=== PATIENT | male | born 1935 | race Caucasian/White ===

== ENCOUNTER 2018-08-17 11:50 | Emergency (ER) | payer OTHER ==
[~2018-08-17] VITALS: Ht 177.8 cm; Wt 108.9 kg
[~2018-08-17 11:50] MED LIST: ASCO500T11 PO; FURO80TA3 PO; GEMF600T7 PO; LEVO150T10 PO; SERT-274 PO; [UNRECOGNIZED DRUG - CODE] PO
[2018-08-17 13:43] LABS: Hemoglobin 14.4 g/dL (13.5-17.5); Mean Corpuscular Hemoglobin 35.5 pg (28.0-32.0); Mean Corpuscular Hgb Conc. 32.8 g/dL (32.0-36.0); Mean Corpuscular Volume 108.3 fL (80.0-100.0); Platelet Count (auto) 95 10^3/uL (140-450); Red Blood Cells 4.06 10^6/uL (4.5-5.90); Red Cell Distribution Width 18.4 % (11.8-14.3)
[2018-08-17 13:50] LABS: Basophils % (manual) 0 (0.0-2.0); Blast Cells 0; Eosinophils % (manual) 0 (0-7); Metamyelocytes % 0; Myelocytes % 0; Promyelocytes % 0; Reactive Lymphocytes 0
[2018-08-17 13:56] LABS: INR 1.47 (0.9-1.15); Partial Thromboplastin Time 28.2 sec (23.78-33.04); Prothrombin Time 15.4 sec (9.27-12.13)
[2018-08-17 13:57] LABS: Calcium 8.7 mg/dL (8.5-10.1); Potassium 3.6 mmol/L (3.5-5.1)
[2018-08-17 14:00] LABS: BUN/Creatinine Ratio 52.3; Total Protein 6.2 g/dL (6.4-8.2)
[2018-08-17 14:30] LABS: Band Neutrophils % (manual) 1; Lymphocytes % (manual) 12 (10.0-50.0); Monocytes % (manual) 4 (0-12)
[2018-08-17] MEDS: LEVOFLOXACIN 500MG 100 ML IV ONE (15:25)
[2018-08-17 16:00] VITALS: BP 113/65
[2018-08-17] MEDS: HYDROcodone-ACET 10/325MG TAB PO ONE (18:02)
== END 2018-08-17 19:00 | disposition home or self-care (01) ==
LOC: EDBD 11:50 → ER 11:52
DX: L03.116 Cellulitis of left lower limb (principal); L03.115 Cellulitis of right lower limb; I11.0 Hypertensive heart disease with heart failure; I50.9 Heart failure, unspecified; N39.0 Urinary tract infection, site not specified; J18.9 Pneumonia, unspecified organism; M19.90 Unspecified osteoarthritis, unspecified site; E78.5 Hyperlipidemia, unspecified; E07.9 Disorder of thyroid, unspecified; Z88.6 Allergy status to analgesic agent; Z88.0 Allergy status to penicillin; Z79.899 Other long term (current) drug therapy
CPT/HCPCS: 36415; 71045; 80053; 82270; 83605; 85007; 85027; 85610; 85730; 87040; 87493; 93005; 94761; 96365; 96366; 99284; J1956